=== PATIENT | male | born 1950 | race Hispanic/Latino ===

== ENCOUNTER 2017-03-16 11:55 | Day surgery (SDC) | payer OTHER, MEDICARE ==
[2017-03-16 12:00] VITALS: BMI 26.2
[2017-03-16 12:52] LABS: ADD MANUAL DIFF? NO
[2017-03-16 13:01] LABS: BASO # 0.03 K/mm3 (0.0-2.0); BASO % 0.2 % (0.0-3.0); EOS # 0.4 (0.0-0.7); EOS % 3.2 % (1.5-5.0); GRAN # 9.76 (1.4-6.5); GRAN % 72.4 % (50.0-68.0); LYMPH # 2.3 (1.2-3.4); MEAN CELL VOLUME 87.5 fL (80.0-105.0); MEAN CORPUSCULAR HEMOGLOBIN 30.2 pg (25.0-35.0); MEAN CORPUSCULAR HGB CONC 34.6 g/dl (31.0-37.0); MEAN PLATELET VOLUME 9.8 fl (7.0-11.0); MONO % 7.2 % (1.0-6.0); PLATELET COUNT 290 10^3/uL (120.0-450.0); WHITE BLOOD COUNT 13.5 10^3/ul (4.5-11.0)
[2017-03-16 13:06] LABS: BLOOD UREA NITROGEN 18 mg/dL (7-21); CALCIUM 9.9 mg/dL (8.4-10.5); CARBON DIOXIDE 30 mmol/L (21-33); CHLORIDE 100 mmol/L (98-107); GFR AFRICAN-AMERICAN > 60; GLUCOSE,RANDOM 93 mg/dL (70-110); POTASSIUM 4.5 mmol/L (3.6-5.0); SODIUM 140 mmol/L (132-148)
[2017-03-16 13:07] LABS: INR 0.97 (0.93-1.08); PARTIAL THROMBOPLASTIN TIME 27.5 Seconds (23.7-30.8)
--- NOTE | 2017-03-16 13:10 | ED PDOC ---
Arrival/HPI - General Chief Complaint: Back Pain Time Seen by Provider: 03/16/17 12:14 Historian: Patient - History of Present Illness Narrative History of Present Illness (Text): 03/16/17 12:15 Fuentes Nguyen is a 67 year old male, who presents to the Emergency department complaining of a mass on his upper back that began "a while ago". Patient states that he decided to come in to get it checked because he has been feeling weakness and had a headache. Patient denies chest pain, shortness of breath, fever, chills, cough, nausea, vomiting, diarrhea, abdominal pain, dizziness, or other complaints. PMD: Dr. Steen Time/Duration: Other (a while ago) Symptom Onset: Gradual Symptom Course: Unchanged Modifying Factors (Text): None Associated Symptoms (Text): weakness and headache Past Medical History - Provider Review Nursing Documentation Reviewed: Yes - Infectious Disease Hx of Infectious Diseases: None - Cardiac Hx Hypertension: Yes Other/Comment: Pacemaker with defibrillator. H/O cardiac catheterization. EF of 29% - Pulmonary Hx Respiratory Disorders: No - Neurological Hx Neurological Disorder: No - HEENT Hx HEENT Disorder: No - Renal Hx Renal Disorder: No - Endocrine/Metabolic Hx Endocrine Disorders: No - Hematological/Oncological Hx Blood Disorders: Yes Other/Comment: growth on neck - Integumentary Hx Dermatological Disorder: No - Gastrointestinal Hx Gastrointestinal Disorders: No - Genitourinary/Gynecological Hx Genitourinary Disorders: No - Psychiatric Hx Psychophysiologic Disorder: No Hx Substance Use: No - Surgical History Hx Cardiac Catheterization: Yes Other/Comment: Pacemaker defib placement. Ankle surgery - Anesthesia Hx Anesthesia: Yes Hx Anesthesia Reactions: No Hx Malignant Hyperthermia: No Family/Social History - Physician Review Nursing Documentation Reviewed: Yes Family/Social History: Unknown Family HX Smoking Status: Never Smoked Hx Alcohol Use: Yes Frequency of alcohol use: Few days per week Hx Substance Use: No Allergies/Home Meds Allergies/Adverse Reactions: Allergies No Known Allergies Allergy (Verified 03/16/17 12:00) Home Medications: Home Meds Medication Instructions Recorded Confirmed Aspirin [Adult Low Dose Aspirin EC] 1 tab PO DAILY 03/16/17 03/16/17 Carvedilol [Coreg] 1 tab PO BID 03/16/17 03/16/17 Cyanocobalamin [Vitamin B12 1000 5,000 mcg PO DAILY 03/16/17 03/16/17 mcg Tab] Lisinopril/Hydrochlorothiazide 1 tab PO DAILY 03/16/17 03/16/17 [Lisinopril-Hctz 20-25 mg Tab] Pyridoxine [Vitamin B6] 100 mg PO DAILY 03/16/17 03/16/17 Ubidecarenone [Coq-10] 200 mg PO DAILY 03/16/17 03/16/17 Review of Systems - Physician Review All systems were reviewed & negative as marked: Yes - Review of Systems Constitutional: Fatigue. absent: Fevers Respiratory: absent: SOB Cardiovascular: absent: Chest Pain Gastrointestinal: absent: Abdominal Pain Musculoskeletal: Other (mass on upper back) Neurological: Headache Physical Exam Vital Signs Temp Pulse Resp BP Pulse Ox 03/16/17 14:00 69 18 135/89 97 03/16/17 12:02 98.3 F 74 18 138/92 H 97 Temperature: Afebrile Blood Pressure: Hypotensive Pulse: Regular Respiratory Rate: Normal Appearance: Positive for: Well-Appearing, Non-Toxic, Comfortable Pain Distress: None Mental Status: Positive for: Alert and Oriented X 3 - Systems Exam Head: Present: Atraumatic, Normocephalic Pupils: Present: PERRL Extroacular Muscles: Present: EOMI Conjunctiva: Present: Normal Mouth: Present: Moist Mucous Membranes Neck: Present: Normal Range of Motion, Other (mass on mid to left lower neck 3in x 2in 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 No: Respiratory Distress, Accessory Muscle Use Cardiovascular: Present: Regular Rate and Rhythm, Normal S1, S2. No: Murmurs Abdomen: Present: Normal Bowel Sounds. No: Tenderness, Distention, Peritoneal Signs Back: Present: Normal Inspection Upper Extremity: Present: Normal Inspection. No: Cyanosis, Edema Lower Extremity: Present: Normal Inspection. No: Edema Neurological: Present: GCS=15, CN II-XII Intact, Speech Normal Skin: Present: Warm, Dry, Normal Color. No: Rashes Psychiatric: Present: Alert, Oriented x 3, Normal Insight, Normal Concentration Medical Decision Making ED Course and Treatment: 03/16/17 12:15 Impression: 67 year old male with mass on left lower neck (3in x 2in). Differential Diagnosis included but are not limited to: neck mass Plan: -- Labs -- Reassess and disposition Progress Notes: 03/16/2017 12:[address] Jamarcus MD who is aware of the plan and will take patient for a biopsy procedure. - Lab Interpretations Lab Results: 03/16/17 12:25 03/16/17 12:25 Lab Results 03/16/17 13:14: Blood Type Confirm O POSITIVE 03/16/17 12:25: Blood Type O POSITIVE, Antibody Screen Negative, BBK History Checked No verified bt 03/16/17 12:25: Sodium 140, Potassium 4.5, Chloride 100, Carbon Dioxide 30, Anion Gap 15, BUN 18, Creatinine 1.2, Est GFR ( Amer) > 60, Est GFR (Non- Af Amer) > 60, Random Glucose 93, Calcium 9.9 03/16/17 12:25: PT 10.5, INR 0.97, APTT 27.5 03/16/17 12:25: WBC 13.5 H, RBC 5.26, Hgb 15.9, Hct 46.0, MCV 87.5, MCH 30.2, MCHC 34.6, RDW 13.0, Plt Count 290, MPV 9.8, Gran % 72.4 H, Lymph % (Auto) 17.0 L, [place] % (Auto) 7.2 H, Eos % (Auto) 3.2, Baso % (Auto) 0.2, Gran # 9.76 H, Lymph # 2.3, [place] # 1.0 H, Eos # 0.4, Baso # 0.03 I have reviewed the lab results: Yes - RAD Interpretation Radiology Orders: 03/16/17 14:30 CT GUIDED NECK BIOPSY BUNDLE [CT] Stat - Medication Orders Current Medication Orders: Acetaminophen (Tylenol 325mg Tab) 650 mg PO Q4 PRN PRN Reason: Pain, Mild (1-3) Sodium Chloride (Sodium Chloride 0.45%) 1,000 mls @ 80 mls/hr IV .[id number] DIONNA Ondansetron HCl (Zofran Inj) 4 mg IVP Q6H PRN PRN Reason: Nausea/Vomiting Oxycodone/Acetaminophen (Percocet 5/325 Mg Tab) 1 tab PO Q4H PRN PRN Reason: Pain, moderate (4-7) Stop: 03/19/17 15:24 Discontinued Medications Fentanyl (Fentanyl) Confirm Administered Dose 200 mcg .ROUTE .STK-MED ONE Stop: 03/16/17 14:22 Last Admin: 03/16/17 15:10 Dose: 100 mcg Comments: 100MCG RETURNED Midazolam HCl (Versed Inj) Confirm Administered Dose 4 mg .ROUTE .STK-MED ONE Stop: 03/16/17 14:22 Last Admin: 03/16/17 15:06 Dose: 2 mg Comments: 2MG RETURNED - Scribe Statement The provider has reviewed the documentation as recorded by the Scribe 03/16/2017 Tanesha Pérez Provider Scribe Attestation: All medical record entries made by the Scribe were at my direction and personally dictated by me. I have reviewed the chart and agree that the record accurately reflects my personal performance of the history, physical exam, medical decision making, and the department course for this patient. I have also personally directed, reviewed, and agree with the discharge instructions and disposition. Disposition/Present on Arrival - Present on Arrival Any Indicators Present on Arrival: No History of DVT/PE: No History of Uncontrolled Diabetes: No Urinary Catheter: No History of Decub. Ulcer: No History Surgical Site Infection Following: None - Disposition Have Diagnosis and Disposition been Completed?: Yes Diagnosis: Neck mass Disposition: HOME/ ROUTINE Disposition Time: 12:19 Patient Plan: Discharge Condition: GOOD
[2017-03-16] MEDS ORDERED: Midazolam 2 MG/2 ML VIAL ONE (14:21)
[2017-03-16] MEDS ORDERED: Oxycodone/Acetaminophen 5/325 mg Tab PO PRN (15:23)
[2017-03-16] MEDS ORDERED: Sodium Chloride 0.45% 1,000 ML IV SCH (15:30)
[2017-03-16 16:25] VITALS: BP 122/63; PULSE 68; RESP 18; TEMP 97.4; O2SAT 95
--- NOTE | 2017-03-16 19:24 | CT ---
PROCEDURE: CT guided posterior neck biopsy. HISTORY: 2.5 x 5 cm posterior neck mass. Evaluate for liposarcoma PHYSICIAN(S): Power Ricketts MD. TECHNIQUE: The relative risks and indications of the procedure were explained to the patient and consent obtained. The patient was placed prone on the CT scanner and preliminary images through the lower neck obtained. Conscious sedation and monitoring were provided throughout the procedure by a nurse. There is a 2.5 x 5 cm well-defined fatty tumor with soft tissue noted in the posterior neck. A posterior approach was selected and the area prepped and draped in the usual sterile fashion. 1% Xylocaine was used to anesthetize the skin and soft tissues. A 17-gauge guiding needle was advanced into the 5 cm fatty tumor. Its position was confirmed with CT. Using coaxial technique, multiple core biopsies were obtained. The postprocedure images show no evidence of significant hemorrhage. IMPRESSION: 1. CT-guided posterior neck biopsy as described above.
== END 2017-03-16 17:00 | disposition home or self-care (01) ==
LOC: ED 11:55 → SDSVAS 14:47
PROVIDERS: ATTEND Radiology Vascular & Interventional Radiology
DX: D17.0 Benign lipomatous neoplasm of skin and subcutaneous tissue of head, face and neck (principal)
CPT/HCPCS: 11100; 77012; 80048; 85025; 85610; 85730; 86850; 86900; 88305; 99152; 99283; J2405

== ENCOUNTER 2018-08-05 09:56 | Day surgery (SDC) | payer MEDICARE, OTHER ==
[2018-08-04 11:08] VITALS: BMI 27.2
[2018-08-05] MEDS ORDERED: Propofol 10 mg/ml Inj (20 ML) ONE (11:35)
[2018-08-05] MEDS ORDERED: Sodium Chloride 0.9% 1,000 ML IV SCH (12:15)
[2018-08-05 13:47] VITALS: BP 126/84; PULSE 68; RESP 14; TEMP 98; O2SAT 98
== END 2018-08-05 13:31 | disposition home or self-care (01) ==
LOC: ENDO 09:56
PROVIDERS: ATTEND Internal Medicine Gastroenterology
DX: Z12.11 Encounter for screening for malignant neoplasm of colon (principal); D12.4 Benign neoplasm of descending colon; D12.5 Benign neoplasm of sigmoid colon; K63.5 Polyp of colon; K57.30 Diverticulosis of large intestine without perforation or abscess without bleeding; I10 Essential (primary) hypertension; K64.8 Other hemorrhoids; Z86.010 Personal history of colon polyps
CPT/HCPCS: 45384; 88305; J2704; J7030